=== PATIENT | female | born 1985 | race Caucasian/White ===

== ENCOUNTER 2018-04-23 08:44 | Emergency (ER) | payer SELFPAY ==
[~2018-04-23] VITALS: Ht 160 cm; Wt 65.8 kg
[2018-04-23 08:47] VITALS: Ht 160 cm; Wt 65.8 kg
[2018-04-23 09:54] VITALS: BP 114/69
== END 2018-04-23 09:54 | disposition home or self-care (01) ==
LOC: ED 08:44
DX: O23.41 Unspecified infection of urinary tract in pregnancy, first trimester (principal); Z3A.08 8 weeks gestation of pregnancy